=== PATIENT | female | born 1970 | race Caucasian/White ===

== ENCOUNTER 2018-06-17 17:34 | Emergency (ER) | payer BC, OTHER ==
[~2018-06-17] VITALS: Ht 165.1 cm; Wt 77.1 kg
[2018-06-17 17:34] VITALS: BP 144/71
== END 2018-06-17 18:50 | disposition home or self-care (01) ==
LOC: ER 17:34
DX: F41.9 Anxiety disorder, unspecified (principal); F17.210 Nicotine dependence, cigarettes, uncomplicated

== ENCOUNTER 2020-07-23 09:13 | Day surgery (SDC) | payer BC, OTHER ==
[~2020-07-23] VITALS: Ht 167.6 cm; Wt 79.4 kg
--- NOTE | ~2020-07-23 | O ---
[facility] [place] [address] OPERATIVE REPORT Name: LAINA MARTINEZ Room #: 150-6 [facility]..#: [id number] Admission: 07/23/20 Attend Phys: Sergo Henderson MD Discharge: Date of : 72 Report #: [id number] THIS REPORT FOR: cc: Christopher Barnett MD, Thomas P. MD Kneidel,Sergo Walker MD ~ DATE OF SERVICE: 07/23/2020 PREOPERATIVE DIAGNOSIS: Left hallux rigidus. POSTOPERATIVE DIAGNOSIS: Left hallux rigidus. PROCEDURE: Left great toe cheilectomy. SURGEON: Dr. Sergo Henderson. COMMUNITY RECREATION PROGRAMMER: Joan Kelly. ANESTHESIA: General. ESTIMATED BLOOD LOSS: Minimal. DRAINS: No drains. TOURNIQUET TIME: 45 minutes. DESCRIPTION OF PROCEDURE: The patient was brought to the operating room where she was placed under general anesthesia. Once under adequate general anesthesia, her left lower extremity was prepped and draped in sterile manner. The extremity was elevated, exsanguinated, tourniquet placed to 250 mmHg. A dorsal incision at the first metatarsophalangeal joint was then made approximately 3 cm in length. This was dissected down through soft tissue of the dorsal joint capsule, which was incised medially retracting the dorsal hallucal nerve. Exposure was then made in the dorsal osteophyte. The large dorsal osteophyte on the first metatarsal was then resected utilizing a sagittal saw and a rongeur. There were loose bodies as well, which were identified and removed with a rongeur and the base of the proximal phalanx. An osteotome was used to complete resection laterally. Once complete, the toe was able to be dorsiflexed to 90 degrees. The wound was irrigated copiously and the joint was irrigated copiously with any debris. The wound was then closed with 2-0 Ethibond suture in the fascial layer, 2-0 Vicryl in subcutaneous tissues and 3-0 nylon was used for the skin. The wound was dressed with Xeroform, 4 x 4s, and sterile soft compressive dressing was placed. Tourniquet was let down at approximately 45 minutes. Toes were pink and warm with good capillary refill. [address] [address] OPERATIVE REPORT Name: LAINA MARTINEZ Room #: 150-6 [facility]..#: [id number] Admission: 07/23/20 Attend Phys: Sergo Henderson MD Discharge: Date of : 72 Report #: [id number] There were no complications from the procedure. The patient tolerated the procedure well and went to the recovery room without incident. By: [id number] Sergo Henderson MD /nt
[~2020-07-23 09:13] MED LIST: DIPHENHIST50 MG PO; PROAIR HFA8.5 GM INH
[2020-07-23 09:42] VITALS: BP 116/71
[2020-07-23] MEDS ORDERED: PERCOCET 7.5-31 EAC1 PO (11:16)
== END 2020-07-23 13:25 | disposition home or self-care (01) ==
LOC: OR 09:13 → TBA 09:14 → OR 10:25
PROVIDERS: ATTEND Orthopaedic Surgery Foot and Ankle Surgery
DX: M20.22 Hallux rigidus, left foot (principal); J45.909 Unspecified asthma, uncomplicated; F41.9 Anxiety disorder, unspecified; F17.210 Nicotine dependence, cigarettes, uncomplicated; Z87.442 Personal history of urinary calculi; Z98.890 Other specified postprocedural states; Z79.899 Other long term (current) drug therapy
CPT/HCPCS: 50010; 50101; 50386; 50445; 50951; 56524; 56526; 56527; 57091; 57179; 62110; 62900; 70005